=== PATIENT | female | born 1975 | race Caucasian/White ===

== ENCOUNTER 2019-06-06 09:30 | Outpatient (RCR) | payer OTHER, SELFPAY ==
[2019-04-20 15:02] VITALS: BMI 45.1
== END 2019-07-19 23:59 | disposition home or self-care (01) ==
LOC: ANHDMC 09:30
PROVIDERS: PCP Family Medicine; Visit Provider Family Medicine
DX: E66.9 Obesity, unspecified (principal); Z68.41 Body mass index [BMI] 40.0-44.9, adult; Z71.3 Dietary counseling and surveillance
CPT/HCPCS: 97802